=== PATIENT | male | born 1980 | race Caucasian/White ===

== ENCOUNTER 2019-01-15 14:23 | Emergency (ER) | payer OTHER ==
[2019-01-15] MEDS ORDERED: HYDROmorphone 1 MG/ML Syringe IVPUSH ONE (14:38)
[2019-01-15] MEDS ORDERED: Iopamidol 612 MG/ML 100 ML Bottle IVPUSH ONE (14:42)
[2019-01-15] MEDS ORDERED: Sodium Chloride 0.9% 1,000 ML IV SCH (14:45)
[2019-01-15] MEDS: Sodium Chloride 0.9% 10 ML Syringe FLUSH PRN ×2 (14:50→15:05)
--- NOTE | 2019-01-15 15:13 | CT ---
CT chest Technique: Multiple axial sections through the chest were obtained. Intravenous contrast was utilized. Comparison: No prior chest imaging. Findings: Mediastinum and hilar regions appear unremarkable. Aorta shows no aneurysm. No axillary adenopathy is seen. No pericardial thickening is seen. Lung window setting shows no pulmonary contusion. No pneumothorax is seen. No pleural effusions are noted. Bone window settings were reviewed which shows no acute osseous abnormality. Impression: 1. Nothing acute is seen on CT study of the chest. Diagnostic code #1 CT abdomen and pelvis Technique: Multiple axial sections were obtained from above the lung apices inferiorly through the lung bases. Intravenous contrast was utilized. No oral contrast has been given. Delayed images were obtained through the bladder. Comparison: No prior abdominal imaging is available. Findings: Small cystic area is seen off the right lobe of the liver most likely due to small exophytic cyst measuring 1.5 cm. Liver shows fatty infiltration without focal abnormality. Gallbladder contains no calcified gallstones. Spleen appears normal. Adrenal glands show no nodule. Pancreas is within normal limits. Kidneys show symmetric contrast enhancement without hydronephrosis or mass. Delayed images shows contrast within the distal ureters and within the bladder. Aorta shows no aneurysm. No retroperitoneal adenopathy or mesenteric abnormalities are seen. Appendix is seen which is normal in size. No pelvic mass or adenopathy is seen. Incidental fat containing right inguinal hernia is seen. Bone window settings were reviewed which shows previous surgery at L5-S1. No acute osseous abnormality is appreciated. Impression: 1. Fatty infiltration within the liver and other incidental findings. 2. Nothing acute is appreciated on CT study of the abdomen and pelvis. Diagnostic code #2
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
== END 2019-01-15 16:44 | disposition home or self-care (01) ==
LOC: JD.ED 14:23
DX: S16.1XXA Strain of muscle, fascia and tendon at neck level, initial encounter (principal); S29.011A Strain of muscle and tendon of front wall of thorax, initial encounter; F17.210 Nicotine dependence, cigarettes, uncomplicated; V68.5XXA Driver of heavy transport vehicle injured in noncollision transport accident in traffic accident, initial encounter; Y92.411 Interstate highway as the place of occurrence of the external cause; Z88.5 Allergy status to narcotic agent
CPT/HCPCS: 36415; 71260; 74177; 80053; 85025; 96361; 96374; 99284; J1170; J7040; Q9967